=== PATIENT | male | born 2000 | race Hispanic/Latino ===

== ENCOUNTER 2021-05-23 14:51 | Emergency (ER) | payer BC ==
[~2021-05-23] VITALS: Ht 170.2 cm; Wt 82.6 kg
== END 2021-05-23 19:30 | disposition home or self-care (01) ==
LOC: ED 14:51
DX: R19.7 Diarrhea, unspecified (principal); D72.819 Decreased white blood cell count, unspecified
CPT/HCPCS: 80053; 81001; 83735; 85007; 85025; 99284